=== PATIENT | female | born 1970 | race Caucasian/White ===

== ENCOUNTER 2016-08-08 05:06 | Day surgery (SDC) | payer BC ==
[~2016-08-08] VITALS: Ht 154.9 cm; Wt 75.3 kg
[2016-08-08 06:24] LABS: BASOPHILS 0.6 % (0.0-2.0); EOSINOPHILS 3.3 % (0-7); HEMATOCRIT 36.1 % (36.0-48.0); HEMOGLOBIN 11.9 g/dL (12-16); IMMATURE GRANULOCYTES 0.5 % (0-5); LYMPHOCYTES 36.8 % (15-50); MCH 31.8 pg (26.0-34.0); MCV 96.5 fL (80.0-100.0); MEAN PLATELET VOLUME 9.3 fL (7.4-10.4); MONOCYTES 6.4 % (2-11); NEUTROPHILS 52.4 % (40-80); PLATELET COUNT 260 10x3/uL (130-400); RBC 3.74 10x6/uL (4.00-5.40); RDW 13.5 % (11.5-14.5); WBC 9.6 10x3/uL (4.8-10.8)
[2016-08-08 06:28] VITALS: BP 98/58; Ht 154.9 cm; Wt 75.3 kg
[2016-08-08 06:35] LABS: CALCIUM 8.8 mg/dL (8.5-10.1); CARBON DIOXIDE 24.8 mmol/L (21.0-32.0); CREATININE - SERUM 0.9 mg/dL (0.6-1.3); POTASSIUM - SERUM 4.8 mmol/L (3.5-5.1)
[2016-08-08] MEDS ORDERED: ACETAMINOPHEN500 M1 PO (06:35)
[2016-08-08 06:37] LABS: APTT 26.2 SECONDS (22.8-39.4)
[2016-08-08 06:38] LABS: INR 0.91 (0.85-1.17)
[2016-08-08] MEDS ORDERED: HYDROCODONE-APA1 TAB PO (12:05)
--- NOTE | 2016-08-08 14:20 | NUR ---
1405-IV DISCONTINUED, CATHETER INTACT, COTTON BALL AND BANDAID APPLIED. DISCHARGE INSTRUCTIONS GIVEN. ESCORTED VIA WHEELCHAIR TO PERSONAL CAR, LEFT WITH FAMILY DRIVING.
--- NOTE | 2016-08-15 16:25 | OP ---
PATIENT NAME: SHANIA SHAFFER MEDICAL RECORD: [id number] :72 LOCATION:D.OPS ADMISSION DATE: SURGEON: YEVGENIY SAWANT MD DATE OF OPERATION: 08/08/2016 PREOPERATIVE DIAGNOSES: 1. Left breast cancer. 2. Tobacco dependence. POSTOPERATIVE DIAGNOSES: 1. Left breast cancer. 2. Tobacco dependence. PROCEDURE: 1. Needle localization, left breast lumpectomy. 2. Left axillary sentinel lymph node biopsy. SURGEON: Yevgeniy Sawant MD REPORT OF PROCEDURE: The patient's left chest and axilla were prepped and draped in sterile fashion. Preoperatively, the patient had a wire placement followed by lymphoscintigraphy. A skin incision was made on the superior aspect of the patient's nipple areolar complex. We followed the wire down into the subareolar tissue and removed the chunk of tissue including the wire. The wire was intact. This tissue was marked appropriately and sent off to mammography, which showed that the mass was present mammographically on our specimen. We then proceeded to the patient's left axilla. A skin incision was made in the inferior aspect of the axilla and electrocautery was used to dissect through the subcutaneous tissues and fascia until we entered the axillary space. A total of 2 lymph nodes were removed. The first one had registered with a reading of 500, the next one had a reading of 90, and removing these, multiple small clips were used to clip off any lymphatic tissue. I did not see any evidence of any further elevated readings present in the axillary space. At this point, the subcutaneous tissues were irrigated out on both wounds using sterile water. The subcutaneous tissues were then reapproximated with interrupted 3-0 Vicryls and the skin incisions were closed with running subcutaneous 5-0 Monocryl. COMPLICATIONS: None. CONDITION: Stable. ANESTHESIA: General endotracheal and local. BLOOD LOSS: 20 minutes. TRANSINT:[id number] Voice Confirmation ID: [id number] DOCUMENT ID: [id number] OPERATIVE REPORT [id number] SHANIA SHAFFER YEVGENIY SAWANT MD at 1625 CC: [id number] DICTATION DATE: 08/08/16 1210 SALES ENGINEER ACCOUNT MANAGER: 08/08/16 2137 [facility] 08/08/16 [facility] [address] [place] [address]
== END 2016-08-08 14:05 | disposition home or self-care (01) ==
LOC: D.OPS 05:06 → D.PAN 07:30 → D.NM 07:30 → D.OPS 11:30
PROVIDERS: Anesthesiology; Surgery
DX: C50.912 Malignant neoplasm of unspecified site of left female breast (principal); C77.3 Secondary and unspecified malignant neoplasm of axilla and upper limb lymph nodes; F17.200 Nicotine dependence, unspecified, uncomplicated

== ENCOUNTER → 2016-08-21 19:18 | Outpatient (CLI) | payer BC ==
[2016-08-08 06:28] VITALS: BMI 31.4
[~2016-08-21 19:18] MED LIST: ACETAMINOPHEN500 M1 PO; HYDROCODONE-APA1 TAB PO
== END | disposition home or self-care (01) ==
LOC: D.LABREF 19:18
DX: C50.912 Malignant neoplasm of unspecified site of left female breast (principal)

== ENCOUNTER 2016-10-23 08:25 | Day surgery (SDC) | payer BC ==
[~2016-10-23] VITALS: Ht 154.9 cm; Wt 73.0 kg
--- NOTE | ~2016-10-23 | OP ---
PATIENT NAME: SHANIA SHAFFER MEDICAL RECORD: [id number] :72 LOCATION:D.OPS ADMISSION DATE: SURGEON: YEVGENIY SAWANT MD DATE OF OPERATION: 10/23/2016 PREOPERATIVE DIAGNOSES: 1. Metastatic breast cancer. 2. Tobacco dependence syndrome. POSTOPERATIVE DIAGNOSES: 1. Metastatic breast cancer. 2. Tobacco dependence syndrome. PROCEDURE: Left subclavian vein port placement with fluoroscopic interpretation. SURGEON: Yevgeniy Sawant MD OPERATIVE PROCEDURE: The patient's left chest was prepped and draped in sterile fashion. A needle was used to cannulate the left subclavian vein. The guidewire was advanced with ease. Fluoro was used to note that the wire was in good position in the venous system. A subcutaneous pouch was made over the left lateral chest. We made a pouch overlying the pectoralis fascia. The catheter was then tunneled between this pouch and the wire exit site. The catheter was sutured to the pectoral fascia using interrupted 2-0 Prolenes times 2. The catheter was cut with a beveled tip at 22 cm. The dilator trocar device was placed over the wire and the wire and dilator were removed. The catheter tip was advanced through the trocar and the trocar was removed. The catheter tip resting in good position in the superior vena cava. The catheter aspirated a nonpulsatile dark blood and flushed easily with heparinized saline. The subcutaneous tissues were then reapproximated with interrupted 3-0 Vicryl and the skin was closed with running subcutaneous 5-0 Monocryl. COMPLICATIONS: None. CONDITION: Stable. ANESTHESIA: General endotracheal. BLOOD LOSS: Minimal. TRANSINT:[id number] Voice Confirmation ID: [id number] DOCUMENT ID: [id number] YEVGENIY SAWANT MD CC: KERMIT NAVARRO DO [id number] DICTATION DATE: 10/23/16 1251 NEMATOLOGIST: 10/23/16 [address] [id number] [place] [id number]
[2016-10-23 09:13] VITALS: BP 100/65; Ht 154.9 cm; Wt 73.0 kg
[2016-10-23 09:33] LABS: BASOPHILS 0.7 % (0.0-2.0); EOSINOPHILS 4.1 % (0-7); HEMATOCRIT 40.1 % (36.0-48.0); HEMOGLOBIN 13.6 g/dL (12-16); IMMATURE GRANULOCYTES 0.5 % (0-5); LYMPHOCYTES 43.1 % (15-50); MCH 32.5 pg (26.0-34.0); MCHC 33.9 g/dL (31.0-37.0); MCV 95.7 fL (80.0-100.0); MEAN PLATELET VOLUME 10.2 fL (7.4-10.4); MONOCYTES 6.3 % (2-11); NEUTROPHILS 45.3 % (40-80); PLATELET COUNT 305 10x3/uL (130-400); RBC 4.19 10x6/uL (4.00-5.40); RDW 13.5 % (11.5-14.5); WBC 8.8 10x3/uL (4.8-10.8)
[2016-10-23] MEDS ORDERED: HYDROCODONE-APA1 TAB PO (12:45)
== END 2016-10-23 14:25 | disposition home or self-care (01) ==
LOC: D.OPS 08:25 → D.PAN 10:15 → D.OPS 11:15
PROVIDERS: Anesthesiology
DX: C50.919 Malignant neoplasm of unspecified site of unspecified female breast (principal); C79.9 Secondary malignant neoplasm of unspecified site; F17.200 Nicotine dependence, unspecified, uncomplicated

== ENCOUNTER 2017-01-17 10:14 | Outpatient (CLI) | payer BC ==
[~2017-01-17] VITALS: Ht 154.9 cm; Wt 74.1 kg
[2017-01-17 11:05] VITALS: BP 85/47; Ht 154.9 cm; Wt 74.1 kg
--- NOTE | 2017-01-17 11:10 | NUR ---
PT AOX4 RESP EVEN AND NONLABORED PT DENIES NEEDS AT THIS TIME FAMILY AT BEDSIDE WILL CONTINUE TO MONITOR
--- NOTE | 2017-01-17 14:04 | NUR ---
1 UNIT PRBC STARTED AT THIS TIME
--- NOTE | 2017-01-17 18:15 | NUR ---
PRBC COMPLETED WITHOUT DIFFICULTY AT THIS TIME PORT FLUSHED AND DISCHARGE INSTRUCTIONS GIVEN AT THIS TIME PT TAKEN VIA WHEELCHAIR VIA PRIVATE VEHICLE AT THIS TIME
== END 2017-01-17 18:15 | disposition home or self-care (01) ==
LOC: D.MS 10:14 → D.OPS 10:14
DX: D64.81 Anemia due to antineoplastic chemotherapy (principal)

== ENCOUNTER 2017-03-18 08:50 | Outpatient (CLI) | payer BC ==
[~2017-03-18] VITALS: Ht 154.9 cm; Wt 74.1 kg
[2017-03-18] MEDS ORDERED: CIMETIDINE200 MG PO (09:20)
[2017-03-18] MEDS ORDERED: PEPTO-BISM525 MG/15 PO (09:20)
[2017-03-18] MEDS ORDERED: DEPO-PROVER150 MG/ML IM (09:21)
[2017-03-18 09:32] VITALS: BP 93/58; Ht 154.9 cm; Wt 74.1 kg
--- NOTE | 2017-03-18 11:30 | NUR ---
SEE TRANSFUSION ADMINISTRATION SHEET FOR VITAL SIGNS.
== END 2017-03-18 17:47 | disposition home or self-care (01) ==
LOC: D.OPS 08:50
DX: D64.9 Anemia, unspecified (principal); D69.6 Thrombocytopenia, unspecified

== ENCOUNTER 2017-06-17 23:13 | Emergency (ER) | payer BC ==
[2017-03-18 09:32] VITALS: BMI 30.8
[~2017-06-17 23:13] MED LIST changes: +CIMETIDINE200 MG PO; +DEPO-PROVER150 MG/ML IM; +PEPTO-BISM525 MG/15 PO
== END 2017-06-17 23:58 | disposition home or self-care (01) ==
LOC: D.ER 23:13
DX: J06.9 Acute upper respiratory infection, unspecified (principal); J20.9 Acute bronchitis, unspecified; J01.90 Acute sinusitis, unspecified; Z85.3 Personal history of malignant neoplasm of breast; F17.200 Nicotine dependence, unspecified, uncomplicated; Z90.12 Acquired absence of left breast and nipple

== ENCOUNTER 2018-01-21 08:00 | Outpatient (CLI) | payer BC ==
[2017-03-18 09:32] VITALS: BMI 30.8
== END 2018-01-21 09:00 | disposition home or self-care (01) ==
LOC: D.MAMMO 08:00
DX: Z85.3 Personal history of malignant neoplasm of breast (principal)

== ENCOUNTER 2018-04-14 05:10 | Inpatient (IN) | payer BC ==
[2018-04-08 15:01] LABS: BASOPHILS 0.4 % (0-2); EOSINOPHILS 2.3 % (0-7); HEMATOCRIT 35.7 % (36.0-48.0); HEMOGLOBIN 12.4 g/dL (12-16); IMMATURE GRANULOCYTES 0.5 % (0-5); LYMPHOCYTES 31.3 % (15-50); MCH 33.9 pg (26.0-34.0); MCHC 34.7 g/dL (31.0-37.0); MCV 97.5 fL (80.0-100.0); MEAN PLATELET VOLUME 8.9 fL (7.4-10.4); MONOCYTES 4.6 % (2-11); NEUTROPHILS 60.9 % (40-80); PLATELET COUNT 265 10x3/uL (130-400); RBC 3.66 10x6/uL (4.00-5.40); RDW 13.4 % (11.5-14.5); WBC 10.9 10x3/uL (4.8-10.8)
[2018-04-08 15:03] LABS: HCG URINE NEGATIVE (NEGATIVE)
[2018-04-08 15:10] LABS: APTT 24.6 SECONDS (22.8-39.4); INR 0.91 (0.85-1.17); PROTIME 11.9 SECONDS (11.6-15.0)
[2018-04-08 15:12] LABS: ANION GAP 12.4 mmol/L (8-16); CARBON DIOXIDE 25.6 mmol/L (21.0-32.0); CREATININE - SERUM 1.4 mg/dL (0.6-1.3)
[~2018-04-14] VITALS: Ht 154.9 cm; Wt 73.2 kg
--- NOTE | ~2018-04-14 | OP ---
PATIENT NAME: SHANIA SHAFFER MEDICAL RECORD: [id number] :72 LOCATION:COLIN D.1274 ADMISSION DATE:04/15/18 SURGEON: ARLINE AYOUB MD DATE OF OPERATION: 04/14/2018 SURGEON: Arline Ayoub MD MANAGER CARDIAC: Codie Polanco MD ANESTHESIA: General anesthesia by Edinson Charles CRNA DIAGNOSIS: Right ureteral transection during laparoscopic hysterectomy. PROCEDURES: Cystoscopy, right retrograde pyelogram, exploratory laparotomy, right psoas hitch, right ureteral reimplantation with refluxing anastomosis, right ureteral stent insertion 6-Malaysian x 24 cm long without string attached. FINDINGS: On cystoscopy, single ureteral orifices bilaterally. No bladder tumors. On right retrograde pyelogram, extravasation of the contrast from the distal ureter. Ureteral catheter ended up in the abdominal cavity. On exploratory laparotomy, right ureter completely transected at the level of the bladder. Inferior vesicle artery stump still backbleeding. These were ligated. BLOOD LOSS: Difficult to estimate it, but minimal from the ureteral reimplantation. CLINICAL HISTORY: This is a 47-year-old female who has history of heavy menstrual bleeding and dysplastic changes in the uterus. Dr. Polanco was performing a laparoscopic hysterectomy today. At the end of the procedure, she gave the patient indigo carmine IV and she performed cystoscopy to check on the ureteral orifices. She could see the dye coming out of the left ureteral orifice. However, she did not see any dye coming out of the right ureteral orifice. She therefore asked for urology consultation. The patient is already asleep and in stirrups. I asked for the x-ray to be present as I intended to perform a retrograde pyelogram to check for ureteral injury. I then performed cystoscopy with a 20-Malaysian cystoscope and 30-degree lens. Findings are as outlined above. A 5-Malaysian open-ended ureteral catheter was inserted into the right ureteral orifice. Diluted contrast was injected and I could see extravasation of contrast. I attempted to move the ureteral catheter up to the level of injury and met with some resistance. However, I finally did breakthrough the resistance. Attempts to inject contrast showed further extravasation of contrast. I attempted to insert a Glidewire in case I was still within the ureteral lumen and this deviated quite an extent medially to indicate that I was not within the ureter anymore. At this point, the wire was entirely removed. The ureteral catheter was left in position. The patient had a Gomez catheter put back in and the ureteral catheter was placed using an adaptor to drain into the Gomez catheter bag. The patient was repositioned into supine position. She was reprepped and redraped. In the interim, Dr. Polanco and I went to speak to the patient's . We explained that the patient had a right ureteral injury and she would need an open surgical repair. I may have to reimplant the ureter if there was complete transection of the ureter. The patient's was agreeable to proceeding with surgery. The patient was prepped and draped. We made an abdominal midline incision infraumbilically going from the symphysis pubis to just inferior to the OPERATIVE REPORT [id number] SHANIA SHAFFER umbilicus. She has a previous infraumbilical incision, which has wide scar. We excised the scar. Going down between the rectus muscle bodies and into the peritoneum, no injury to the bowel was seen. The bladder was identified. There was a large quantity of blood in the pelvis. Once this was suctioned out, we placed Bookwalter retractor, and with moistened lap sponges, we were able to leave a clear area in the right lower quadrant where we could identify the area of the ureter. The peritoneum overlying the ureter was dissected with Metzenbaum scissors. The ureter was dissected free using the Yankauer suction for blunt dissection. I could see the ureter proximally, with no injury. Going down, there was a distinct thermal burn injury from the Harmonic scalpel where the ureter had been completely transected. The distal end of the ureter was visible as the ureteral catheter was coming out from it and going into the abdominal peritoneal cavity. Dr. Polanco had explained to me that she was trying to get a vigorously bleeding vessel near the bladder when the ureteral injury occurred. Looking posterior to the ureter, I could see a large branch of the inferior vesicle artery, which was backbleeding into the pelvis. We therefore took a 2-0 silk and placed a aiofwa-zj-xvneu across this vessel to completely ligate it. The ureter has been completely transected right at the level of the bladder. Therefore, there was no point in trying to salvage the ureteral stump on the bladder. The ureteral stump was closed using 2-0 Vicryl in a whmwbm-ik-yipwo. The ureteral catheter was removed entirely before the ibvyxr-rf-rejzf was tied down. This left the right proximal ureter still occluded. I dissected the pedicle of the ureter to be sure that it had good blood supply, but was mobile enough for reimplantation. We had a very good blood supply to the ureter with a visible vascular pedicle to the cut end of the ureter. Posterior to the ureter was branch of the internal iliac artery going down to the bladder. This was what was bleeding and we therefore placed clips on this. It was resected at some distance away from the distal end of the ureter. At this point, I decided that we will have to perform a psoas hitch. I therefore tried to free the left side of the bladder as much as possible in order to allow the bladder to be mobilized to the right side. We cleared the region of the right psoas muscle with blunt dissection. The fat in this area was completely removed with blunt dissection and with Bovie. The iliac artery and veins were identified and remained intact. On the left side of the bladder, the pedicles were bluntly mobilized. We found the obliterated umbilical artery and this was ligated with 2-0 silk tiess and then divided. The superior vesicle artery was identified and this was also ligated between 2-0 silk ties and divided. This allowed the bladder to be completely mobilized to be able to meet up to the right psoas muscle without any tension. Vicryl #0 sutures times 2 were placed along the psoas muscle parallel to the ilioinguinal nerve, which was left intact and untouched. Full-thickness sutures were then placed through the dome of the bladder. These psoas hitch sutures were then tied down and this resulted in completion of the psoas hitch. We then placed the ureter right up against the bladder surface. The location where the ureter most naturally wanted to lay on the bladder without any tension was chosen for the neocystotomy site. Two times 2-0 silk full-thickness suspensory sutures were placed through the bladder wall. A #15 blade was used to make a cystotomy. We made sure we had the entire bladder lumen visible and the bladder mucosa visible through the cystotomy opening. The cystotomy was about 8 mm to a centimeter in length. On the ureteral stump on the proximal OPERATIVE REPORT [id number] SHANIA SHAFFER ureter, there was an area of thermal injury for a distance of about 4-5 mm from the cut end of the ureter. A Harmonic scalpel had been used to cut the ureter during the hysterectomy surgery. We therefore avoided this area. A stay suture was placed on this area. Germain scissors were then used to cut the ureter almost full thickness but leaving a little band of tissue posteriorly in order to allow us to put traction on the ureter. The site of the incision was 4mm from the cut end of the ureter, to avoid the thermally injured tissue. The ureteral lumen was opened up and we saw good jet of urine coming out. A Sensor wire was then inserted into the ureteral lumen and the wire was placed up to the renal pelvis. We then placed Germain scissors in the ureteral lumen and spatulated the ureter along its longitudinal axis, on the antimesenteric side of the ureter for a distance of 1 cm. We then placed a total of 7 anastomotic sutures. A 4-0 Monocryl suture was placed from outside in at the apex of the ureter. Then, we went from inside out at the apical portion of the neocystotomy. This formed our apical anastomotic suture. On either side of the apex, we put another 4-0 Monocryl suture. Thus, we had three Monocryl 4-0 anastomotic sutures. I did not put any further sutures as we were getting too entangled with the large number of sutures being present. At this point, over the guidewire, I inserted the ureteral stent. Once the stent was up to the renal pelvis level, the wire was completely removed. The distal end of the stent was then put into the bladder. We then brought the bladder and the ureteral stump in close physical proximity to each other, in fact touching each other. The 3 anastomotic sutures were then tied. Another four times 4-0 Monocryl sutures were used to complete the ureteral anastomosis to the bladder neocystotomy. A total of 7 anastomotic sutures were placed. This was a refluxing anastomosis. Once this was completed, we then inserted a #10 Jkae-Carlson drain through a left lower quadrant insertion site. The drain was sutured to the skin using 2-0 nylon. The drain was cut shorter and placed close to but not right on the anastomosis. We then removed our retractors and lap sponges. Sponge and instrument counts were correct. The rectus fascia was reapproximated using looped #[address] Polanco will be performing a running subcuticular skin closure. Anesthesia will be providing a TAP block at the end of the case for pain control. The Jake-Carlson drain was put to bulb drainage. The patient will be going home with the Gomez catheter and the Jake-Carlson drain. In about 10 days' time, we will obtain a cystogram as an outpatient to verify that there is no leakage from the ureteral anastomosis. At about 14 days' time or so, we will perform cystoscopy to remove the ureteral stent. I will then perform further testing to verify that there is no ureteral stricture. TRANSINT:[id number] Voice Confirmation ID: [id number] DOCUMENT ID: [id number] ARLINE AYOUB MD at 0817 CC: [id number] DICTATION DATE: 04/14/18 1517 CLIENT DEVELOPMENT MANAGER: 04/14/18 1739 ADM IN [facility] [address] [id number]
[~2018-04-14 05:10] MED LIST changes: +TAMOXIFEN CITRA20 MG PO
[2018-04-14 06:36] VITALS: BP 100/55; BMI 30.5
[2018-04-14 06:43] LABS: HCG URINE NEGATIVE (NEGATIVE)
[2018-04-14 16:56] VITALS: BP 111/76
[2018-04-14 17:15] VITALS: BP 108/72
[2018-04-14 17:30] VITALS: BP 107/67
[2018-04-14 20:02] VITALS: BP 108/69; Ht 154.9 cm; Wt 73.2 kg
[2018-04-15 04:57] LABS: BASOPHILS 0.1 % (0-2); EOSINOPHILS 0.1 % (0-7); HEMATOCRIT 27.6 % (36.0-48.0); HEMOGLOBIN 9.8 g/dL (12-16); IMMATURE GRANULOCYTES 0.3 % (0-5); MCHC 35.5 g/dL (31.0-37.0); MCV 95.8 fL (80.0-100.0); MEAN PLATELET VOLUME 8.8 fL (7.4-10.4); NEUTROPHILS 77.5 % (40-80); PLATELET COUNT 214 10x3/uL (130-400); RBC 2.88 10x6/uL (4.00-5.40); RDW 13.3 % (11.5-14.5); WBC 13.1 10x3/uL (4.8-10.8)
[2018-04-15 05:07] LABS: ANION GAP 8.4 mmol/L (8-16); CALCIUM 7.7 mg/dL (8.5-10.1); CARBON DIOXIDE 25.2 mmol/L (21.0-32.0); CREATININE - SERUM 1.2 mg/dL (0.6-1.3); POTASSIUM - SERUM 3.6 mmol/L (3.5-5.1)
[2018-04-15 08:15] VITALS: BP 105/56
[2018-04-15 19:46] VITALS: BP 116/63
[2018-04-15 23:57] VITALS: BP 107/60
[2018-04-16 03:55] VITALS: BP 100/61
[2018-04-16 06:23] LABS: ANION GAP 9.4 mmol/L (8-16); BASOPHILS 0.2 % (0-2); CALCIUM 8.2 mg/dL (8.5-10.1); CARBON DIOXIDE 27.3 mmol/L (21.0-32.0); CREATININE - SERUM 1.2 mg/dL (0.6-1.3); EOSINOPHILS 1.7 % (0-7); HEMATOCRIT 28.1 % (36.0-48.0); HEMOGLOBIN 9.4 g/dL (12-16); IMMATURE GRANULOCYTES 0.3 % (0-5); LYMPHOCYTES 26.3 % (15-50); MCH 32.8 pg (26.0-34.0); MCHC 33.5 g/dL (31.0-37.0); MEAN PLATELET VOLUME 9.7 fL (7.4-10.4); MONOCYTES 4.3 % (2-11); NEUTROPHILS 67.2 % (40-80); PLATELET COUNT 242 10x3/uL (130-400); POTASSIUM - SERUM 3.7 mmol/L (3.5-5.1); RBC 2.87 10x6/uL (4.00-5.40); RDW 13.7 % (11.5-14.5); WBC 9.9 10x3/uL (4.8-10.8)
[2018-04-16 06:27] LABS: MCV 97.9 fL (80.0-100.0)
[2018-04-16 09:00] VITALS: BP 100/59
[2018-04-16] MEDS ORDERED: IBUPROFEN600 MG PO (17:20)
[2018-04-16] MEDS ORDERED: PERCOCET 5-3251 TAB PO (17:21)
[2018-04-26] MEDS ORDERED: HEMORRHOIDAL OI57 GM TP (16:18)
== END 2018-04-16 18:00 | disposition home or self-care (01) | DRG 742 ==
LOC: D.OPS 05:10 → D.PAN 07:30 → D.OPS 07:30 → D.LD 15:30 → D.OPS 16:20 → D.LD 16:20 → D.OPS 04-15 07:04 → D.LD 04-15 07:04 → D.OPS 04-15 07:05 → D.LD 04-16 18:00
PROVIDERS: Anesthesiology; Obstetrics & Gynecology
PROC: 0T160ZB Bypass Right Ureter to Bladder, Open Approach (ICD-10-PCS; 2018-04-14)
PROC: 04Q Lower Arteries, Repair (ICD-10-PCS; 2018-04-14)
PROC: 04QE0ZZ Repair Right Internal Iliac Artery, Open Approach (ICD-10-PCS; 2018-04-14)
PROC: BT1D1ZZ Fluoroscopy of Right Kidney, Ureter and Bladder using Low Osmolar Contrast (ICD-10-PCS; 2018-04-14)
PROC: 0T760DZ Dilation of Right Ureter with Intraluminal Device, Open Approach (ICD-10-PCS; 2018-04-14)
PROC: 0UT94ZZ Resection of Uterus, Percutaneous Endoscopic Approach (ICD-10-PCS; principal; 2018-04-14 07:30)
PROC: 0UT24ZZ Resection of Bilateral Ovaries, Percutaneous Endoscopic Approach (ICD-10-PCS; 2018-04-14 07:30)
PROC: 0UT74ZZ Resection of Bilateral Fallopian Tubes, Percutaneous Endoscopic Approach (ICD-10-PCS; 2018-04-14 07:30)
DX: D25.9 Leiomyoma of uterus, unspecified (principal); N99.72 Accidental puncture and laceration of a genitourinary system organ or structure during other procedure; E87.1 Hypo-osmolality and hyponatremia; C50.919 Malignant neoplasm of unspecified site of unspecified female breast; K21.9 Gastro-esophageal reflux disease without esophagitis

== ENCOUNTER 2018-04-20 02:27 | Inpatient (IN) | payer BC ==
[~2018-04-20] VITALS: Ht 154.9 cm; Wt 74.8 kg
--- NOTE | ~2018-04-20 | MORECARE ---
CASE MANAGEMENT DISCHARGE SUMMARY PATIENT: SHANIA SHAFFER UNIT: [id number] ADM DATE: 04/20/18 AGE: 47 : [birth year] SEX: F ROOM/BED: D.2229 AUTHOR: MELY,DOC PHYSICIAN: REFERRING PHYSICIAN: RONALDO MORALES MD DATE OF SERVICE: 04/23/18 Discharge Plan Patient Name: SHANIA SHAFFER Facility: [facility]:[place] : 1970 Planned Disposition: Home Anticipated Discharge Date: 04/22/18 Discharge Date: 04/22/2018 Expected LOS: 2 Initial Reviewer: [email or web address] Initial Review Date: 04/20/2018 Generated: 04/23/18 12:14 pm Comments DCP- Discharge Planning Updated by [email or web address]: Kami Caro on 04/22/18 1:[address] Patient Name: SHANIA SHAFFER Admission Status: ER Accout number: [id number] Admission Date: 04-20-2018 : 1970 Admission Diagnosis:ILEUS, UNSPECIFIED Attending: RONALDO MORALES Current LOS: 2 Anticipated DC Date: 04-22-2018 Planned Disposition: Home Primary Insurance: [employer] Discharge Planning Comments: CM met with patient to discuss discharge planning, she is alone in the room. Discharge orders have been received. She states her is taking her home. States she is independent with all ADL's and IADL's. States post op while she can't drive, her is driving her where she needs to go. States she does not need home health or any DME. CM will continue to follow and assist with discharge planning/needs. Art Installer: Kami Caro DCPIA - Discharge Planning Initial Assessment Updated by [email or web address]: Kami Caro on 04/22/18 2:15 pm * Is the patient Alert and Oriented? Yes * How many steps to enter\exit or inside your home? 3/2 * PCP Dr. Brennan * Pharmacy [facility] * Preadmission Environment Home with Family * ADLs Independent * Equipment Back Brace Cane Other * Other Equipment Abdominal binder * List name and contact numbers for known caregivers / representatives who currently or will assist patient after [facility] [phone] * Verbal permission to speak to the caregivers and representatives has been obtained from the patient. Yes * Community resources currently utilized None * Additional services required to return to the preadmission environment? No * Can the patient safely return to the preadmission environment? Yes * Has this patient been hospitalized within the prior 30 days at any hospital? Yes Last DP export: 04/22/18 1:24 Patient Name: SHANIA SHAFFER Page [id number] at 1114 All edits/amendments must be made on the electronic document DICTATION DATE: 04/23/181112 RN ADMISSIONS: VESTA 04/23/181112 RPT#: [id number] DC DATE:04/22/18 STATUS: DIS IN [facility] [address] [place] [address] END OF REPORT
[~2018-04-20 02:27] MED LIST changes: +IBUPROFEN600 MG PO; +PERCOCET 5-3251 TAB PO
[2018-04-20 02:52] LABS: BASOPHILS 0.2 % (0-2); EOSINOPHILS 2.8 % (0-7); HEMATOCRIT 33.8 % (36.0-48.0); HEMOGLOBIN 11.7 g/dL (12-16); IMMATURE GRANULOCYTES 1.2 % (0-5); LYMPHOCYTES 15.3 % (15-50); MCH 33.2 pg (26.0-34.0); MCHC 34.6 g/dL (31.0-37.0); MONOCYTES 6.1 % (2-11); NEUTROPHILS 74.4 % (40-80); RBC 3.52 10x6/uL (4.00-5.40); RDW 13.5 % (11.5-14.5); WBC 13.7 10x3/uL (4.8-10.8)
[2018-04-20 02:54] LABS: PLATELET COUNT 322 10x3/uL (130-400)
[2018-04-20 03:13] LABS: ALBUMIN 3.1 g/dL (3.4-5.0); ANION GAP 16.8 mmol/L (8-16); BILIRUBIN - TOTAL 0.15 mg/dL (0.2-1.3); CALCIUM 9.2 mg/dL (8.5-10.1); CARBON DIOXIDE 25.8 mmol/L (21.0-32.0); CREATININE - SERUM 1.1 mg/dL (0.6-1.3); POTASSIUM - SERUM 3.6 mmol/L (3.5-5.1); PROTEIN - SERUM 6.9 g/dL (6.4-8.2)
[2018-04-20 06:00] VITALS: BP 113/71
[2018-04-20] MEDS ORDERED: LOVENOX40 MG/0.4 SC (08:01)
[2018-04-20] MEDS ORDERED: GAS-X125 M1 PO (08:04)
[2018-04-20] MEDS ORDERED: COLACE100 MG PO (08:05)
[2018-04-20 08:08] VITALS: BP 174/84; BMI 31.2
[2018-04-20 09:44] VITALS: BP 174/84
[2018-04-20 10:23] VITALS: BMI 31.1
[2018-04-20 13:34] VITALS: Ht 154.9 cm; Wt 74.8 kg
[2018-04-20 14:44] VITALS: BP 112/81
[2018-04-20 14:57] LABS: APPEARANCE HAZY (CLEAR); BILIRUBIN NEGATIVE (NEGATIVE); COLOR YELLOW (YELLOW); GLUCOSE NEGATIVE (NEGATIVE); KETONE NEGATIVE (NEGATIVE); NITRITE NEGATIVE (NEGATIVE); PROTEIN 2+ mg/dL (NEGATIVE); SPECIFIC GRAVITY 1.015 (1.005-1.020); UROBILINOGEN NORMAL (NORMAL)
[2018-04-20 14:58] LABS: EPITHELIAL CELLS 0-5 /hpf (0-5); RED CELLS - URINE 0-5 /hpf (0-5); WHITE CELLS - URINE RARE /hpf (0-5)
[2018-04-21 06:00] LABS: BASOPHILS 0.3 % (0-2); EOSINOPHILS 3.5 % (0-7); IMMATURE GRANULOCYTES 0.8 % (0-5); LYMPHOCYTES 32.3 % (15-50); MCH 32.7 pg (26.0-34.0); MEAN PLATELET VOLUME 9.1 fL (7.4-10.4); MONOCYTES 6.7 % (2-11); NEUTROPHILS 56.4 % (40-80); PLATELET COUNT 281 10x3/uL (130-400)
[2018-04-21 06:24] LABS: HEMOGLOBIN 8.9 g/dL (12-16); MCV 99.3 fL (80.0-100.0); RBC 2.72 10x6/uL (4.00-5.40); WBC 7.1 10x3/uL (4.8-10.8)
[2018-04-21 06:26] VITALS: BP 115/75
[2018-04-21 06:27] LABS: ALBUMIN 2.4 g/dL (3.4-5.0); ANION GAP 12.7 mmol/L (8-16); BILIRUBIN - TOTAL 0.16 mg/dL (0.2-1.3); CALCIUM 8.1 mg/dL (8.5-10.1); CREATININE - SERUM 1.1 mg/dL (0.6-1.3); POTASSIUM - SERUM 3.7 mmol/L (3.5-5.1); PROTEIN - SERUM 5.5 g/dL (6.4-8.2)
[2018-04-21 09:19] VITALS: BP 105/72
[2018-04-21 11:36] VITALS: BP 101/64
[2018-04-21 15:30] VITALS: BP 107/53
[2018-04-21 20:00] VITALS: BP 110/67
[2018-04-22 05:05] LABS: BASOPHILS 0.2 % (0-2); EOSINOPHILS 2.5 % (0-7); HEMATOCRIT 27.6 % (36.0-48.0); HEMOGLOBIN 9.3 g/dL (12-16); IMMATURE GRANULOCYTES 0.6 % (0-5); MCH 33.1 pg (26.0-34.0); MCHC 33.7 g/dL (31.0-37.0); MCV 98.2 fL (80.0-100.0); MEAN PLATELET VOLUME 9.1 fL (7.4-10.4); MONOCYTES 7.9 % (2-11); NEUTROPHILS 66.8 % (40-80); PLATELET COUNT 316 10x3/uL (130-400); RBC 2.81 10x6/uL (4.00-5.40); RDW 13.5 % (11.5-14.5); WBC 8.1 10x3/uL (4.8-10.8)
[2018-04-22 05:25] LABS: ALBUMIN 2.8 g/dL (3.4-5.0); ANION GAP 11.4 mmol/L (8-16); BILIRUBIN - TOTAL 0.23 mg/dL (0.2-1.3); CALCIUM 8.5 mg/dL (8.5-10.1); CARBON DIOXIDE 28.2 mmol/L (21.0-32.0); CREATININE - SERUM 0.9 mg/dL (0.6-1.3); POTASSIUM - SERUM 3.6 mmol/L (3.5-5.1); PROTEIN - SERUM 6.2 g/dL (6.4-8.2)
[2018-04-22 10:20] VITALS: BP 112/78
[2018-04-22 15:20] VITALS: BP 125/80
[2018-04-26] MEDS ORDERED: HEMORRHOIDAL OI57 GM TP (16:18)
== END 2018-04-22 16:14 | disposition home or self-care (01) | DRG 389 ==
LOC: D.ER 02:27 → D.MS 06:09
PROVIDERS: Family Medicine; Internal Medicine Nephrology
PROC: 0D9670Z Drainage of Stomach with Drainage Device, Via Natural or Artificial Opening (ICD-10-PCS; principal; 2018-04-20)
PROC: BT141ZZ Fluoroscopy of Kidneys, Ureters and Bladder using Low Osmolar Contrast (ICD-10-PCS; 2018-04-22)
DX: K56.7 Ileus, unspecified (principal); F17.203 Nicotine dependence unspecified, with withdrawal; N39.0 Urinary tract infection, site not specified; K56.609 Unspecified intestinal obstruction, unspecified as to partial versus complete obstruction; J42 Unspecified chronic bronchitis; C50.919 Malignant neoplasm of unspecified site of unspecified female breast; K21.9 Gastro-esophageal reflux disease without esophagitis; F41.9 Anxiety disorder, unspecified

== ENCOUNTER 2018-04-27 06:11 | Day surgery (SDC) | payer BC ==
[~2018-04-27] VITALS: Ht 154.9 cm; Wt 70.3 kg
--- NOTE | ~2018-04-27 | OP ---
PATIENT NAME: SHANIA SHAFFER MEDICAL RECORD: [id number] :72 LOCATION:D.OPS ADMISSION DATE: SURGEON: ARLINE AYOUB MD DATE OF OPERATION: 04/27/2018 SURGEON: Arline Ayoub MD ANESTHESIA: TIVA by Pablo Hermosillo CRNA. DIAGNOSIS: Retained right ureteral stent, urinary tract infection. PROCEDURE: Cystoscopy and right ureteral stent removal. FINDINGS: Single ureteral orifices bilaterally. No bladder tumors were seen. Inflammation from recent cystitis. Ureteral stent entering from the ureteral reimplantation at the dome of the bladder. BLOOD LOSS: None. CLINICAL HISTORY: This is a 47-year-old female, who recently had a laparoscopic hysterectomy performed by Dr. Polanco. Intraoperatively, she had discovered that the right ureter was occluded. The patient then required an exploratory laparotomy and we discovered that the right ureter had been completely divided at the level where it entered into the bladder. I performed a right psoas hitch and ureteral reimplantation. During the reimplantation of the ureter into the dome of the bladder, a ureteral stent was then inserted to keep the anastomosis open. The patient was then closed and she went to the floor. 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 She was emptying her ROJAS drains on her own. Also, she had the Gomez catheter removed. She was actually voiding on her own on a fresh anastomosis. When I discovered this the next morning, I insisted that she have the Gomez catheter reinserted to allow the bladder to heal. In the interim, she came back to the hospital with an episode of ileus, which resolved with observation. During her hospitalization, the urine cultures showed that she had UTI with 2 different organisms. She is on antibiotics for both organisms right now. The ureteral stent is now contaminated by these organisms and needs to be removed. She had a cystogram last week, which showed no evidence of urinary leakage from the bladder, ureteral anastomosis. Reflux of contrast was also seen into the right ureter. The Gomez catheter and the Jake-Carlson drain removed last week. She comes today to have the retained right ureteral stent removed. SHE IS ALLERGIC TO TRAMADOL. She was given [employer]ce[employer] business continuity management director to the OR. DESCRIPTION OF PROCEDURE: The patient was given IV sedation. She was then placed into dorsal lithotomy position and prepped and draped. A 21-Hungarian cystoscope with 30-degree lens was used for visualization. No bladder tumors were seen. The patient has single ureteral orifices on each side. The stent is seen coming in from the ureteral anastomosis at the dome of the bladder. The psoas hitch is intact. Grasping forceps were used and the stent was removed entirely. It was sent to pathology for identification. The patient then had the bladder drained through the cystoscope sheath. The scope was then removed. I will see the patient in followup in 2 weeks' time to verify that her urinary tract infection has cleared. TRANSINT:[id number] Voice Confirmation ID: [id number] DOCUMENT ID: [id number] OPERATIVE REPORT [id number] SHANIA SHAFFER ROBERT S MD at 0922 CC: [id number] DICTATION DATE: 04/27/18 0856 FITNESS SERVICES MANAGER: 04/27/18 0910 [id number] [place] [address]
[~2018-04-27 06:11] MED LIST changes: +COLACE100 MG PO; +GAS-X125 M1 PO; +HEMORRHOIDAL OI57 GM TP; +LOVENOX40 MG/0.4 SC
[2018-04-27 06:33] LABS: HEMATOCRIT 34.7 % (36.0-48.0); HEMOGLOBIN 11.8 g/dL (12-16); MCH 33.3 pg (26.0-34.0); MEAN PLATELET VOLUME 8.8 fL (7.4-10.4); RBC 3.54 10x6/uL (4.00-5.40); RDW 13.4 % (11.5-14.5); WBC 11.8 10x3/uL (4.8-10.8)
[2018-04-27 06:56] LABS: APTT 25.5 SECONDS (22.8-39.4); INR 0.96 (0.85-1.17); PROTIME 12.4 SECONDS (11.6-15.0)
[2018-04-27 07:30] VITALS: BP 111/70; Ht 154.9 cm; Wt 70.3 kg
== END 2018-04-27 09:35 | disposition home or self-care (01) ==
LOC: D.OPS 06:11 → D.PAN 08:00 → D.OPS 08:30
PROVIDERS: Anesthesiology
DX: T19.8XXA Foreign body in other parts of genitourinary tract, initial encounter (principal)

== ENCOUNTER → 2018-10-15 20:28 | Outpatient (CLI) | payer BC ==
[2018-04-27 07:30] VITALS: BMI 29.3
[2018-10-15 21:57] LABS: BASOPHILS 0.4 % (0-2); EOSINOPHILS 2.2 % (0-7); HEMATOCRIT 39.4 % (36.0-48.0); HEMOGLOBIN 13.7 g/dL (12-16); IMMATURE GRANULOCYTES 0.4 % (0-5); MCH 33.4 pg (26.0-34.0); MCHC 34.8 g/dL (31.0-37.0); MCV 96.1 fL (80.0-100.0); MONOCYTES 6.7 % (2-11); NEUTROPHILS 56.3 % (40-80); RDW 14.4 % (11.5-14.5); WBC 11.1 10x3/uL (4.8-10.8)
[2018-10-15 21:59] LABS: PLATELET COUNT 289 10x3/uL (130-400)
[2018-10-15 22:13] LABS: ALBUMIN 4.3 g/dL (3.4-5.0); ANION GAP 13.2 mmol/L (8-16); BILIRUBIN - TOTAL 0.34 mg/dL (0.2-1.3); CALCIUM 9.9 mg/dL (8.5-10.1); CARBON DIOXIDE 27.9 mmol/L (21.0-32.0); POTASSIUM - SERUM 4.1 mmol/L (3.5-5.1); PROTEIN - SERUM 7.7 g/dL (6.4-8.2)
== END | disposition home or self-care (01) ==
LOC: D.LABREF 20:28
PROVIDERS: ATTEND Legal Medicine
DX: C50.919 Malignant neoplasm of unspecified site of unspecified female breast (principal)